=== PATIENT | male | born 1965 | race Hispanic/Latino ===

== ENCOUNTER 2017-09-22 12:09 | Emergency (ER) | payer OTHER ==
[2017-09-22 12:23] VITALS: BMI 33.5
[2017-09-22] MEDS ORDERED: Lidocaine 1% Inj (20ml) ONE (12:39)
[2017-09-22] MEDS ORDERED: Absorbable Gelatin Sponge Size 12-7 ONE (12:40)
[2017-09-22] MEDS ORDERED: TDAP Vaccine 0.5 mL Syr IM ONE (13:03)
--- NOTE | 2017-09-22 13:26 | RAD ---
PROCEDURE: Left Hand Radiographs. HISTORY: lacerations to 2nd and 3rd digits COMPARISON: None. FINDINGS: BONES: Normal. No fracture. JOINTS: Normal. No osteoarthritic changes. SOFT TISSUES: Normal. OTHER FINDINGS: None. IMPRESSION: Normal left hand radiographs.
[2017-09-22] MEDS ORDERED: Amoxicillin-Clav 875-125 mg Tab PO STA (15:24)
--- NOTE | 2017-09-22 17:05 | ED PDOC ---
Arrival/HPI - General Chief Complaint: Abnormal Skin Integrity Time Seen by Provider: 09/22/17 12:56 Historian: Patient - History of Present Illness Narrative History of Present Illness (Text): 09/22/17 12:57 A 52 year old male presents to the emergency department for evaluation of lacerations to left index finger and left middle finger. Patient reports lacerations from using a circular saw, was cutting wood. Patient is right hand dominant. Notes slight numbness to tip of fingers. Tetanus shot greater than 5 years. No active bleeding. Patient denies any other complaints at this time. Symptom Onset: Sudden Symptom Course: Unchanged Activities at Onset: Significant Associated Symptoms (Text): none Past Medical History - Provider Review Nursing Documentation Reviewed: Yes - Psychiatric Hx Substance Use: No Family/Social History - Physician Review Nursing Documentation Reviewed: Yes Family/Social History: No Known Family HX Smoking Status: Never Smoked Hx Alcohol Use: Yes Frequency of alcohol use: Socially Hx Substance Use: No Allergies/Home Meds Allergies/Adverse Reactions: Allergies No Known Allergies Allergy (Verified 09/22/17 12:24) Review of Systems - Physician Review All systems were reviewed & negative as marked: Yes - Review of Systems Constitutional: absent: Fevers Skin: Laceration (left index finger, left middle finger; slight numbness to tip of fingers) Physical Exam Vital Signs Reviewed: Yes Appearance: Positive for: Well-Appearing, Non-Toxic, Comfortable Pain Distress: None Mental Status: Positive for: Alert and Oriented X 3 - Systems Exam Head: Present: Atraumatic, Normocephalic Pupils: Present: PERRL Extroacular Muscles: Present: EOMI Conjunctiva: Present: Normal Mouth: Present: Moist Mucous Membranes Neck: Present: Normal Range of Motion Respiratory/Chest: Present: Clear to Auscultation, Good Air Exchange. No: Respiratory Distress, Accessory Muscle Use Cardiovascular: Present: Regular Rate and Rhythm, Normal S1, S2. No: Murmurs Abdomen: No: Tenderness, Distention, Peritoneal Signs Back: Present: Normal Inspection Upper Extremity: Present: NORMAL PULSES, Other (complex laceration to palmar aspect to digits; full ROM; some evulsion noted to index finger at tip of laceration; good capillary refill) Lower Extremity: Present: Normal Inspection. No: Edema Neurological: Present: GCS=15, CN II-XII Intact, Speech Normal Skin: Present: Warm, Dry, Normal Color. No: Rashes Psychiatric: Present: Alert, Oriented x 3, Normal Insight, Normal Concentration Medical Decision Making ED Course and Treatment: 09/22/17 12:57 Impression: A 52 year old male with left index finger and left middle finger lacerations. Plan: -- Radiology left hand -- Boostrix -- Reassess and disposition Progress Notes: 09/22/17 13:28 Left Hand Radiographs Creator : Mansoor Mccullough MD IMPRESSION: Normal left hand radiographs. PROCEDURE: LACERATION REPAIR Performed by the emergency provider Location: left index and left middle fingers; digital Description: clean wound edges, no foreign bodies Distal CMS: Normal. No deficits. Neurovascularly intact. Anesthesia: Lidocaine 1% Preparation: The wound was cleaned with NS and Betadyne. The area was prepped and draped in the usual sterile fashion. Exploration: The wound was explored and no foreign bodies were found. Procedure: The wound was closed with 4-0 nylon. There was good / appropriate / adequate / loose approximation. In total, 10 sutures for left index finger and 4 sutures for left middle finger were used. Post-Procedure: Good closure and hemostasis. The patient tolerated the procedure well and there were no complications. CSM remains intact. Post procedure dressing applied. - RAD Interpretation Radiology Orders: 09/22/17 12:57 HAND LEFT 3 VIEWS ROUTINE [RAD] Stat - Medication Orders Current Medication Orders: Discontinued Medications Acetaminophen (Tylenol 325mg Tab) 650 mg PO STAT STA Stop: 09/22/17 15:25 Last Admin: 09/22/17 15:32 Dose: 650 mg MAR Pain/Vitals Document 09/22/17 15:32 NE (Rec: 09/22/17 15:32 NE [id number]) Pain Reassessment Is This A Pain ReAssessment? No Sleep Is patient sleeping during reassessment? No Presence of Pain Presence of Pain Yes Pain Scale Used Pain Scale Used Numeric Location Left, Right or Bilateral Left Pain Location Body Site Finger Description Throbbing Amoxicillin/Clavulanate Potassium (Augmentin 875 Mg-125 Mg Tab) 1 tab PO STAT STA PRN Reason: Protocol Stop: 09/22/17 15:25 Last Admin: 09/22/17 15:32 Dose: 1 tab Tetanus/Reduced Diphtheria/Acell Pertussis (Boostrix Vaccine Inj) 0.5 ml IM .ONCE ONE Stop: 09/22/17 13:04 Last Admin: 09/22/17 14:23 Dose: 0.5 ml Immunization Registry Document 09/22/17 14:23 HI (Rec: 09/22/17 14:23 HI [id number]) Immunization Registry Consent Date 09/22/17 - PA / INFORMATICS PHARMACIST / Resident Statement / has reviewed & agrees with the documentation as recorded. MD/DO has examined the patient and agrees with the treatment plan. - Scribe Statement The provider has reviewed the documentation as recorded by the Evelia Davidson Provider Scribe Attestation: All medical record entries made by the Scribsteph were at my direction and personally dictated by me. I have reviewed the chart and agree that the record accurately reflects my personal performance of the history, physical exam, medical decision making, and the department course for this patient. I have also personally directed, reviewed, and agree with the discharge instructions and disposition. Disposition/Present on Arrival - Present on Arrival Any Indicators Present on Arrival: No History of DVT/PE: No History of Uncontrolled Diabetes: No Urinary Catheter: No History of Decub. Ulcer: No History Surgical Site Infection Following: None - Disposition Have Diagnosis and Disposition been Completed?: Yes Diagnosis: Laceration of fingers without complication Disposition: HOME/ ROUTINE Disposition Time: 14:00 Condition: IMPROVED Discharge Instructions (ExitCare): Laceration Repair With Stitches (DC) Additional Instructions: Thank you for letting us take care of you today. The emergency medical care you received today was directed at your acute symptoms. If you were prescribed any medication, please fill it and take as directed. It may take several days for your symptoms to resolve. Return to the Emergency Department if your symptoms worsen, do not improve, or if you have any other problems. Please contact your doctor or call one of the physicians/clinics you have been referred to that are listed on the Patient Visit Information form that is included in your discharge packet. Bring any paperwork you were given at discharge with you along with any medications you are taking to your follow up visit. Our treatment cannot replace ongoing medical care by a primary care provider (PCP) outside of the emergency department. Thank you for allowing the [facility] team to be part of your care today. Follow up with Dr. Treviño, the hand doctor, or your primary doctor in 2 days for re-evaluation and wound check. Prescriptions: Amoxicillin/Clavulanate [Augmentin 875 MG-125 MG] 1 tab PO BID #20 tab Referrals: PCP,NO [Primary Care Provider] - Follow up with primary Manuela Treviño MD [Non-Staff] - Follow up with primary Forms: [facility] (Congolese), WORK NOTE
[2017-09-23 00:13] VITALS: RESP 18; O2SAT 100
[2017-09-23 00:15] VITALS: BP 147/85; PULSE 67
== END 2017-09-22 15:45 | disposition home or self-care (01) ==
LOC: ED 12:09
DX: S61.211A Laceration without foreign body of left index finger without damage to nail, initial encounter (principal); S61.213A Laceration without foreign body of left middle finger without damage to nail, initial encounter; W31.2XXA Contact with powered woodworking and forming machines, initial encounter; Z23 Encounter for immunization